=== PATIENT | male | born 1970 | race Hispanic/Latino ===

== ENCOUNTER 2020-07-16 16:11 | Emergency (ER) | payer SELFPAY ==
[2020-07-16] MEDS ORDERED: Acetaminophen 500 MG TAB ONE (16:49)
[2020-07-17 03:46] LABS: SARS-CoV-2 MS2 Positive; SARS-CoV-2 N Gene Positive; SARS-CoV-2 S Gene Positive; SARS-CoV-2 by NAA DETECTED (NotDetected); SARS-CoV-2 orf1ab Positive
== END 2020-07-16 17:00 | disposition home or self-care (01) ==
LOC: BURERS 16:11
DX: U07.1 COVID-19 (principal)
CPT/HCPCS: 87635; 99284; U0003

== ENCOUNTER 2020-07-23 16:55 | Emergency (ER) | payer SELFPAY ==
[2020-07-23] MEDS ORDERED: Dexamethasone 4 mg/ml Vial ONE (18:52)
[2020-07-23] MEDS ORDERED: cefTRIAXone\\ROCEPHIN 2 GM VIAL ONE (18:52)
[2020-07-23] MEDS ORDERED: Sodium Chloride 0.9% 100 ML ONE (18:52)
[2020-07-23] MEDS ORDERED: Albuterol 200 PUFF (6.7GM INHALER) ONE (18:52)
[2020-07-23] MEDS ORDERED: Ondansetron PF 4 MG/2 ML Vial ONE (18:53)
[2020-07-23] MEDS ORDERED: Azithromycin 500 MG VIAL ONE (18:53)
[2020-07-23] MEDS ORDERED: Aspirin Chewable 81 MG TAB ONE (18:53)
[2020-07-23] MEDS ORDERED: Acetaminophen 500 MG TAB ONE (18:53)
[2020-07-23 18:56] LABS: CRP (Inflammatory) 18.42 mg/dL (= or < 0.5); Magnesium 2.4 mg/dL (1.6-2.6)
[2020-07-23 19:03] LABS: #Lymphocytes 1.3 thou/uL (1.20-3.40); #Monocytes 0.3 thou/uL (0.11-0.59); #Neutrophils 6.8 thou/uL (1.40-6.50); %Basophils 0.5 % (0.0-1.0); %Lymphocytes 15.5 % (21.0-51.0); %Monocytes 3.1 % (0.0-10.0); ALT (SGPT) 70 U/L (8-55); AST (SGOT) 47 U/L (5-34); Albumin 4.3 g/dL (3.5-5.0); Alkaline Phosphatase 85 U/L (40-110); Anion Gap 17 mmol/L (10-20); BUN (Urea Nitrogen) 10 mg/dL (8.9-20.6); Calc. Creatinine Clearance 0 mL/min (70-130); Calcium 9.2 mg/dL (7.8-10.44); Carbon Dioxide 25 mmol/L (22-29); Chloride 94 mmol/L (98-107); Globulin 4.8 g/dL (2.4-3.5); Glucose 106 mg/dL (70-105); Hemoglobin 17.1 g/dL (14.0-18.0); Mean Corpuscular HGB CONC 33.8 g/dL (32.0-36.0); Mean Corpuscular Hemoglobin 29.1 pg (27.0-31.0); Mean Corpuscular Volume 86.2 fL (78.0-98.0); Mean Platelet Volume 10.7 fL (7.4-10.4); Platelet Count 157 thou/uL (130-400); Potassium 3.2 mmol/L (3.5-5.1); Protein, Total 9.1 g/dL (6.0-8.3); RBC Distribution Width 11.5 % (11.5-14.5); Red Blood Cell (RBC) Count 5.87 mill/uL (4.70-6.10); Sodium 133 mmol/L (136-145); White Blood Cell (WBC) Count 8.4 thou/uL (4.8-10.8)
[2020-07-23] MEDS ORDERED: Potassium Chloride 20 MEQ TAB ONE (20:13)
[2020-07-23 20:22] LABS: Bilirubin Negative (Negative); Blood, Urine Small (Negative); Clarity Clear (Clear); Glucose, Urine (Dipstick) 250 mg/dL (Negative); Ketone, Urine Trace mg/dL (Negative); Leukocyte Negative (Negative); Nitrite Negative (Negative); Protein, Urine (Dipstick) 100 mg/dL (Neg-Trace); Urobilinogen > or = 8.0 mg/dL (Less than 2); pH, Urine 6.5 (5.0-9.0)
[2020-07-23 20:28] LABS: RBC/HPF 0-3 HPF (0-3); Squamous Epithelial 0-3 HPF (0-3); WBC/HPF 0-3 HPF (0-3)
[2020-07-23 20:29] LABS: Bacteria/HPF 1+ HPF (None Seen)
--- NOTE | 2020-07-23 21:05 | RAD ---
PORTABLE CHEST: Date: 07-23-2020 An AP portable film at 1831 is presented with no prior films available for comparison. FINDINGS: Patchy infiltrates are present bilaterally throughout the lungs. This is more prominent in the lower halves than the upper. Give the history of being Covid positive, pneumonia is presumed. There are no large effusions. The heart size is normal. IMPRESSION: Bilateral patchy pulmonary infiltrates consistent with pneumonia, presumably related to Covid. POS: HOME
== END 2020-07-23 21:28 | disposition home or self-care (01) ==
LOC: BURERS 16:55
DX: U07.1 COVID-19 (principal); J12.89 Other viral pneumonia; E87.6 Hypokalemia
CPT/HCPCS: 71045; 80053; 81003; 81015; 82550; 83605; 83690; 83735; 83880; 84484; 85025; 85379; 86140; 87040; 87086; 93005; 96365; 96367; 96375; J0456; J0696; J1100; J2405; J3490